=== PATIENT | male | born 2000 | race African-American/Black ===

== ENCOUNTER 2021-08-02 07:33 | Emergency (ER) | payer SELFPAY ==
[~2021-08-02] VITALS: Ht 177.8 cm; Wt 90.0 kg
[2021-08-02] MEDS ORDERED: KETOROLAC 30MG/ML VIAL IV ONE (08:45)
[2021-08-02] MEDS ORDERED: CLINDAMYCIN HCL 150MG CAPSULE PO SCH (08:45)
[2021-08-02] MEDS ORDERED: SODIUM CHLORIDE 0.9% 1000ML BAG (SEPSIS BOLUS) IV ONE (08:45)
[2021-08-02] MEDS ORDERED: PENICILLIN G BENZATHINE 1,200,000 UNITS/2ML SYR IM ONE (08:45)
[2021-08-02 09:35] LABS: HEMATOCRIT. 41.8 % (42.0-52.0); HEMOGLOBIN. 14.1 g/dL (14.0-18.0); MEAN CORPUSCULAR HEMOGLOBIN 31.9 pg (28.0-32.0); MEAN CORPUSCULAR VOLUME 94.6 fL (80.0-94.0); MEAN PLATELET VOLUME 9.4 fl (7.4-10.4); PLATELET 118 x1000/uL (130-400); RED BLOOD CELL COUNT 4.42 mill/uL (4.7-6.1)
[2021-08-02 09:44] LABS: CHLORIDE 104 mEq/L (98-107)
[2021-08-02] MEDS ORDERED: ONDANSETRON 4MG ODT PO ONE (09:45)
[2021-08-02 10:32] LABS: PLATELET ESTIMATE SLIGHTLY DECREASED
[2021-08-02] MEDS ORDERED: IBUP-2030 MT (10:45)
[2021-08-02] MEDS ORDERED: CLIN300C12 MT (10:45)
[2021-08-02] MEDS ORDERED: KETOROLAC 30MG/ML VIAL IV NR (11:00)
[2021-08-02] MEDS ORDERED: PENICILLIN G BENZATHINE 1,200,000 UNITS/2ML SYR IM NR (11:00)
[2021-08-02 11:07] VITALS: BP 140/72
== END 2021-08-02 13:34 | disposition home or self-care (01) ==
LOC: ER 07:54
DX: J02.9 Acute pharyngitis, unspecified (principal); L02.511 Cutaneous abscess of right hand; R11.0 Nausea
CPT/HCPCS: 36415; 71045; 80053; 83605; 85025; 87040; 87070; 87430; 96361; 96372; 96374; 99284; J0561; J1885; J7030; Q0162; Z7610